=== PATIENT | male | born 1955 | race Caucasian/White ===

== ENCOUNTER 2018-11-08 07:47 | Emergency (ER) | payer BC, MEDICARE ==
[2018-11-08 08:06] VITALS: BP 128/77
--- NOTE | 2018-11-08 08:33 | UC ---
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 is deep on top of the PIP joint , moving the finger well on flexion and extension applied pressure / band aid to stop the bleeding start bleeding this morning as he removed the bandaid - History Of Current Complaint Chief Complaint: UCWounds Stated Complaint: RIGHT INDEX FINGER LAC Time Seen by Provider: 11/08/18 08:08 Hx Obtained From: Patient Laceration Location: Finger - right index figer Mechanism Of Injury: Sharp Trauma Onset/Duration: Sudden Onset, Still Present Severity: Moderate Pain Intensity: 4 Aggravating Factors: Movement - Allergies/Home Medications Allergies/Adverse Reactions: Allergies Allergy/AdvReac Type Severity Reaction Status Date / Time No Known Allergies Allergy Verified 11/08/18 08:06 Home Medications: Home Medications Aspirin 81 mg CHEW TAB* [Aspirin Low Dose TAB*] 81 mg PO DAILY 11/08/18 [ History Confirmed 11/08/18] Atorvastatin* [Lipitor*] 10 mg PO DAILY 11/08/18 [History Confirmed 11/08/18] Losartan TAB* [Cozaar TAB*] 25 mg PO DAILY 11/08/18 [History Confirmed 11/08/18] metFORMIN* [Glucophage 500 MG TAB *] 500 mg PO BID 11/08/18 [History Confirmed 11/08/18] PMH/Surg Hx/FS Hx/Imm Hx Endocrine History: Diabetes Cardiovascular History: Hypertension - Surgical History Surgical History: Yes Surgery Procedure, Year, and Place: HEMORRHOID SX [facility] - Family History Known Family History: Positive: Hypertension, Diabetes - Social History Alcohol Use: Occasionally Substance Use Type: None Smoking Status (MU): Former Smoker When Did the Patient Quit Smoking/Using Tobacco: 25 years ago - Immunization History Most Recent Tetanus Shot: 10/06/2014 Review of Systems All Other Systems Reviewed And Are Negative: Yes Constitutional: Positive: Negative Skin: Positive: Negative Eyes: Positive: Negative ENT: Positive: Negative Respiratory: Positive: Negative Is Patient Immunocompromised?: No Physical Exam Triage Information Reviewed: Yes Appearance: Well-Appearing, No Pain Distress, Well-Nourished Vital Signs: Initial Vital Signs Temp 97.6 F 11/08/18 08:01 Pulse 59 11/08/18 08:01 Resp 18 11/08/18 08:01 BP 128/77 11/08/18 08:01 Pulse Ox 98 07/10/19 08:01 Vital Signs Reviewed: Yes Eye Exam: Normal ENT: Positive: Normal ENT inspection, Hearing grossly normal, Pharynx normal Neck exam: Normal Neck: Positive: Supple, Nontender, No Lymphadenopathy Respiratory: Positive: Chest non-tender, Lungs clear, Normal breath sounds Cardiovascular: Positive: RRR, No Murmur, Pulses Normal Skin: Positive: Other - laceration right index figner , dorsal aspect of pip joint, 1 cm in diameter, no need for repair . FROM of the right index finger with jose luis strength Laceration Course/Dx - Diagnosis Provider Diagnosis: Laceration of right index finger Discharge - Sign-Out/Discharge Documenting (check all that apply): Patient Departure All imaging exams completed and their final reports reviewed: No Studies - Discharge Plan Condition: Stable Disposition: HOME Patient Education Materials: Finger Laceration (ED) Referrals: Haile Lafleur MD [Primary Care Provider] - If Needed Additional Instructions: no need for laceration repair keep the wound clean and dry follow up as needed - Billing Disposition and Condition Condition: STABLE Disposition: Home
== END 2018-11-08 08:35 | disposition home or self-care (01) ==
LOC: UCCORT 07:47
DX: S61.210A Laceration without foreign body of right index finger without damage to nail, initial encounter (principal); W30.89XA Contact with other specified agricultural machinery, initial encounter; Y92.9 Unspecified place or not applicable; Z79.82 Long term (current) use of aspirin; E11.9 Type 2 diabetes mellitus without complications; Z79.84 Long term (current) use of oral hypoglycemic drugs; I10 Essential (primary) hypertension; Z87.891 Personal history of nicotine dependence
CPT/HCPCS: 99202; G0463